=== PATIENT | male | born 1980 | race Caucasian/White ===

== ENCOUNTER → 2024-02-20 07:38 | Outpatient (REF) | payer OTHER, SELFPAY | LOC: PAVMRI 07:38 | PROVIDERS: ATTENDING PHYSICIAN Orthopaedic Surgery Hand Surgery; FAMILY PHYSICIAN Student in an Organized Health Care Education/Training Program | DX: M25.511 Pain in right shoulder (principal); S46.011A Strain of muscle(s) and tendon(s) of the rotator cuff of right shoulder, initial encounter; M25.811 Other specified joint disorders, right shoulder; Y93.73 Activity, racquet and hand sports | CPT/HCPCS: 73221 ==